=== PATIENT | female | born 1990 | race Caucasian/White ===

== ENCOUNTER 2018-07-05 14:25 | Emergency (ER) | payer BC ==
[2018-07-05 14:46] VITALS: RESP 16; TEMP 99
[2018-07-05 15:29] LABS: Basophils % (A) 1 %; Eosinophils # (A) 0.2 k/uL (0-0.7); Eosinophils % (A) 2 %; HCT 40.7 % (34.0-46.0); Lymphocytes # (A) 1.3 k/uL (1.0-4.8); Lymphocytes % (A) 19 %; MCH 27.7 pg (25.0-35.0); MCHC 32.1 g/dL (31.0-37.0); MCV 86.4 fL (80.0-100.0); Mean Platelet Volume 7.7; Monocytes # (A) 0.3 k/uL (0-1.0); Monocytes % (A) 4 %; Neutrophils # (A) 5.2 k/uL (1.3-7.7); Neutrophils % (A) 74 %; Platelet Count 308 k/uL (150-450); RBC 4.71 m/uL (3.80-5.40); RDW 12.2 % (11.5-15.5); WBC 7.1 k/uL (3.8-10.6)
[2018-07-05 15:37] LABS: ALT 11 U/L (9-52); AST 25 U/L (14-36); Albumin 4.1 g/dL (3.5-5.0); Alkaline Phosphatase 81 U/L (38-126); Amylase 55 U/L (30-110); Anion Gap 9 mmol/L; Blood Urea Nitrogen 12 mg/dL (7-17); Calcium 9.5 mg/dL (8.4-10.2); Carbon Dioxide 28 mmol/L (22-30); Chloride 104 mmol/L (98-107); Glucose 105 mg/dL (74-99); Lipase 74 U/L (23-300); Potassium 4.8 mmol/L (3.5-5.1); Sodium 141 mmol/L (137-145); Total Bilirubin 0.4 mg/dL (0.2-1.3); Total Protein 7.2 g/dL (6.3-8.2)
[2018-07-05 16:19] LABS: Amorphous Sediment,Urine Occasional /hpf; Appearance,Urine Cloudy (Clear); Bilirubin,Urine Negative (Negative); Blood,Urine Trace (Negative); Color,Urine Yellow; Glucose,Urine (UA) Negative (Negative); Hyaline Casts,Urine 3 /lpf (0-2); Ketones,Urine Negative (Negative); Leukocyte Esterase,Urine Trace (Negative); Mucus,Urine Few /hpf; Nitrite,Urine Negative (Negative); Protein,Urine Trace (Negative); RBC,Urine 5 /hpf (0-5); Specific Gravity,Urine 1.023 (1.001-1.035); Squamous Epithelial Cell,Urine 4 /hpf (0-4); Urobilinogen,Urine <2.0 mg/dL (<2.0); WBC,Urine 4 /hpf (0-5)
[2018-07-05] MEDS ORDERED: IBUPROFEN 600 MG TAB PO STA (16:40)
[2018-07-05] MEDS ORDERED: traMADol 50 MG TAB PO STA (16:40)
--- NOTE | 2018-07-05 16:44 | ED ---
Abdominal Pain HPI - General Chief Complaint: Abdominal Pain Stated Complaint: pelvic pain Time Seen by Provider: 07/05/18 15:56 Source: patient, RN notes reviewed, old records reviewed Mode of arrival: ambulatory Limitations: no limitations - History of Present Illness Initial Comments: This is a 27 year old female with CC of 2 days of RLQ abdominal pain. Patient reports she was seen by urgent care and sent in for further evaluation for ovarian cyst. Patient mother reports recent diagnosis of uterine cancer. Patient has had a history of ovarian cysts when she was much younger. She reports pain with having a bowel movement. No abnormal discharge, vaginal bleeding. LMP was last week. She denies fevers or chills. - Related Data Previous Rx's Medication Instructions Recorded Bisacodyl [Dulcolax] 10 mg PO ONCE #20 tablet. 07/05/18 traMADol HCl [Ultram] 50 mg PO Q6HR PRN 3 Days #12 tab 07/05/18 Allergies Allergy/AdvReac Type Severity Reaction Status Date / Time No Known Allergies Allergy Verified 07/05/18 16:14 Review of Systems ROS Statement: Those systems with pertinent positive or pertinent negative responses have been documented in the HPI. ROS Other: All systems not noted in ROS Statement are negative. Past Medical History Past Medical History: No Reported History History of Any Multi-Drug Resistant Organisms: None Reported Past Surgical History: No Surgical Hx Reported Past Psychological History: No Psychological Hx Reported Smoking Status: Never smoker Past Alcohol Use History: Occasional Past Drug Use History: None Reported General Exam - General Exam Comments Initial Comments: This is a 27 year old female, no distress. Limitations: no limitations General appearance: alert, in no apparent distress Head exam: Present: atraumatic, normocephalic, normal inspection Eye exam: Present: normal appearance, PERRL, EOMI. Absent: scleral icterus, conjunctival injection, periorbital swelling ENT exam: Present: normal exam, mucous membranes moist Neck exam: Present: normal inspection. Absent: tenderness, meningismus, lymphadenopathy Respiratory exam: Present: normal lung sounds bilaterally. Absent: respiratory distress, wheezes, rales, rhonchi, stridor Cardiovascular Exam: Present: regular rate, normal rhythm, normal heart sounds. Absent: systolic murmur, diastolic murmur, rubs, gallop, clicks GI/Abdominal exam: Present: soft, tenderness (minimal RLQ tendernesson exam), normal bowel sounds. Absent: distended, guarding, rebound, rigid Extremities exam: Present: normal inspection, full ROM, normal capillary refill. Absent: tenderness, pedal edema, joint swelling, calf tenderness Back exam: Present: normal inspection Neurological exam: Present: alert, oriented X3, CN II-XII intact Psychiatric exam: Present: normal affect, normal mood Skin exam: Present: warm, dry, intact, normal color. Absent: rash Course Vital Signs 07/05/18 07/05/18 14:43 19:34 Temperature 99 F Pulse Rate 119 H 104 H Respiratory 16 16 Rate Blood Pressure 125/85 117/72 O2 Sat by Pulse 99 97 Oximetry Medical Decision Making - Medical Decision Making Patient is a 27 year old female with RLQ and pelvic pain for 2 days. Patient lab work from [facility] was completed and negative for acute process. UA is negative for infection and HCG is negative. Last menstrual period was last week. Transvaginal US was completed and shows a large ovarian and uterine mass, recommended further visualization from CT or MRI. CT was completed and shows evidence of ascites and likely large R ovarian tumor. Patient pain was managed with tramadol. Patient mother recently diagnosed with uterine cancer and is seeing OBGYN oncologist tomorrow. Patient will go with mother to appt for her new diagnosis as well. Discussed need to contact PCP GURPREET tomorrow for referral. Discussed return parameters. Will DC patient with Rx for ultram and stool softner. All questions answered and return parameters discussed. - Lab Data Result diagrams: 07/05/18 15:10 07/05/18 15:10 Lab Results 07/05/18 07/05/18 07/05/18 Range/Units 15:10 15:10 16:04 WBC 7.1 (3.8-10.6) k/uL RBC 4.71 (3.80-5.40) m/uL Hgb 13.0 (11.4-16.0) gm/dL Hct 40.7 (34.0-46.0) % MCV 86.4 (80.0-100.0) fL MCH 27.7 (25.0-35.0) pg MCHC 32.1 (31.0-37.0) g/dL RDW 12.2 (11.5-15.5) % Plt Count 308 (150-450) k/uL Neutrophils % 74 % Lymphocytes % 19 % Monocytes % 4 % Eosinophils % 2 % Basophils % 1 % Neutrophils # 5.2 (1.3-7.7) k/uL Lymphocytes # 1.3 (1.0-4.8) k/uL Monocytes # 0.3 (0-1.0) k/uL Eosinophils # 0.2 (0-0.7) k/uL Basophils # 0.0 (0-0.2) k/uL Sodium 141 (137-145) mmol/L Potassium 4.8 (3.5-5.1) mmol/L Chloride 104 (98-107) mmol/L Carbon Dioxide 28 (22-30) mmol/L Anion Gap 9 mmol/L BUN 12 (7-17) mg/dL Creatinine 0.66 (0.52-1.04) mg/dL Est GFR (CKD-EPI)AfAm >90 (>60 ml/min/1.73 sqM) Est GFR (CKD-EPI)NonAf >90 (>60 ml/min/1.73 sqM) Glucose 105 H (74-99) mg/dL Calcium 9.5 (8.4-10.2) mg/dL Total Bilirubin 0.4 (0.2-1.3) mg/dL AST 25 (14-36) U/L ALT 11 (9-52) U/L Alkaline Phosphatase 81 (38-126) U/L Total Protein 7.2 (6.3-8.2) g/dL Albumin 4.1 (3.5-5.0) g/dL Amylase 55 (30-110) U/L Lipase 74 (23-300) U/L Urine Color Yellow Urine Appearance Cloudy H (Clear) Urine pH 5.0 (5.0-8.0) Ur Specific [place] 1.023 (1.001-1.035) Urine Protein Trace H (Negative) Urine Glucose (UA) Negative (Negative) Urine Ketones Negative (Negative) Urine Blood Trace H (Negative) Urine Nitrite Negative (Negative) Urine Bilirubin Negative (Negative) Urine Urobilinogen <2.0 (<2.0) mg/dL Ur Leukocyte Esterase Trace H (Negative) Urine RBC 5 (0-5) /hpf Urine WBC 4 (0-5) /hpf Ur Squamous Epith Cells 4 (0-4) /hpf Amorphous Sediment Occasional H (None) /hpf Hyaline Casts 3 H (0-2) /lpf Urine Mucus Few H (None) /hpf Urine HCG, Qual (Not Detectd) 07/05/18 Range/Units 16:04 WBC (3.8-10.6) k/uL RBC (3.80-5.40) m/uL Hgb (11.4-16.0) gm/dL Hct (34.0-46.0) % MCV (80.0-100.0) fL MCH (25.0-35.0) pg MCHC (31.0-37.0) g/dL RDW (11.5-15.5) % Plt Count (150-450) k/uL Neutrophils % % Lymphocytes % % Monocytes % % Eosinophils % % Basophils % % Neutrophils # (1.3-7.7) k/uL Lymphocytes # (1.0-4.8) k/uL Monocytes # (0-1.0) k/uL Eosinophils # (0-0.7) k/uL Basophils # (0-0.2) k/uL Sodium (137-145) mmol/L Potassium (3.5-5.1) mmol/L Chloride (98-107) mmol/L Carbon Dioxide (22-30) mmol/L Anion Gap mmol/L BUN (7-17) mg/dL Creatinine (0.52-1.04) mg/dL Est GFR (CKD-EPI)AfAm (>60 ml/min/1.73 sqM) Est GFR (CKD-EPI)NonAf (>60 ml/min/1.73 sqM) Glucose (74-99) mg/dL Calcium (8.4-10.2) mg/dL Total Bilirubin (0.2-1.3) mg/dL AST (14-36) U/L ALT (9-52) U/L Alkaline Phosphatase (38-126) U/L Total Protein (6.3-8.2) g/dL Albumin (3.5-5.0) g/dL Amylase (30-110) U/L Lipase (23-300) U/L Urine Color Urine Appearance (Clear) Urine pH (5.0-8.0) Ur Specific [place] (1.001-1.035) Urine Protein (Negative) Urine Glucose (UA) (Negative) Urine Ketones (Negative) Urine Blood (Negative) Urine Nitrite (Negative) Urine Bilirubin (Negative) Urine Urobilinogen (<2.0) mg/dL Ur Leukocyte Esterase (Negative) Urine RBC (0-5) /hpf Urine WBC (0-5) /hpf Ur Squamous Epith Cells (0-4) /hpf Amorphous Sediment (None) /hpf Hyaline Casts (0-2) /lpf Urine Mucus (None) /hpf Urine HCG, Qual Not Detected (Not Detectd) - Radiology Data Radiology results: report reviewed Large midline pelvic mass measures 14cm by 9cm, by 10cm which is solid. Some free fluid in pelvis. Pelvic mass could be uterus. Cystic structure on R ovary measures 3 by 2 cm. Normal arterial flow in R ovary. CT shows large solid and cystic pelvic max more likely related to ovarian tumor. Moderate ascites fluid throughout the abdomen. Disposition Clinical Impression: Abdominal pain, Pelvic mass, Ascites Disposition: HOME SELF-CARE Condition: Stable Instructions: Pelvic Pain in Women (ED) Additional Instructions: Patient has a follow-up tomorrow with primary care physician and go with the oncology appointment with her mother. Take the pain medicine every 8 hours as needed as well as take stool softeners. Return to the emergency department if any alarming signs or symptoms occur. Prescriptions: Bisacodyl [Dulcolax] 10 mg PO ONCE #20 tablet. traMADol HCl [Ultram] 50 mg PO Q6HR PRN 3 Days #12 tab PRN Reason: Pain Is patient prescribed a controlled substance at d/c from ED?: Yes If prescribed controlled substance>3 days was MAPS reviewed?: Prescribed <3 Days Referrals: Myrna Harrell DO [Primary Care Provider] - 1-2 days Time of Disposition: 19:16
--- NOTE | 2018-07-05 17:49 | US ---
EXAMINATION TYPE: US transvaginal DATE OF EXAM: 07/05/2018 COMPARISON: NONE CLINICAL HISTORY: Pain. Pelvic TECHNIQUE: Transvaginal (TV) and Transabdominal (TA) . Transvaginal sonographic images of the pelvi s were acquired. Transabdominal sonographic images were medically necessary to better assess the fol lowing anatomy: Date of LMP: 06/27/2018 EXAM MEASUREMENTS: Transvaginal exam attempted. Initial view of large, complex mass seen. Unable to image uterus due to mass distorting, compressing and pushing uterus anteriorly. Possible rt ovary (3.0 x 2.5 x 2.2 cm) seen at right margin of mass, color flow and waveforms obtaine d. No left ovary identified. Trans abdominal imaging done in an attempt to fully evaluate pelvic structures, Large (14.3 x 8.7 x 10.33 cm) mass fills pelvic cavity Second technologist brought into room to view. Question of better evaluation by CT? IMPRESSION: There is a large midline pelvic mass that measures 14 x 9 x 10 cm which is predominantly solid. There is also some free fluid in the pelvis. The pelvic mass could be the uterus. There is a o leslye-shaped structure that could be the right ovary that measures 3 x 2.2 cm. There is normal arterial waveform in the right ovarian artery. MR scan or CT scan would be helpful for further evaluation if clinically indicated. Uterine tumor is possible.
--- NOTE | 2018-07-05 17:53 | XR ---
EXAMINATION TYPE: XR KUB DATE OF EXAM: 07/05/2018 COMPARISON: NONE HISTORY: Right lower quadrant pain TECHNIQUE: 2 views FINDINGS: Bowel gas pattern is normal. There is no sign of intestinal obstruction or pneumoperitoneum . Fecal pattern is normal. Lung bases are clear. There are no pathologic calcifications over the kidn eys. IMPRESSION: Nonacute abdomen.
--- NOTE | 2018-07-05 18:46 | CT ---
EXAMINATION TYPE: CT abdomen pelvis w con DATE OF EXAM: 07/05/2018 COMPARISON: None HISTORY: Pelvic pain x2 days. CT DLP: 978 mGycm Automated exposure control for dose reduction was used. TECHNIQUE: Helical acquisition of images was performed from the lung bases through the pelvis. CONTRAST: Performed without Oral Contrast and with IV Contrast, patient injected with 100ml mL of Isovue M300. FINDINGS: Lung bases are clear. There is no pleural effusion. There is moderate ascites fluid throughout the ab domen. Liver spleen pancreas gallbladder appear normal. Bile ducts are not dilated. There is no adrenal mass . Kidneys show satisfactory contrast opacification. There is no hydronephrosis. Ureters are not dilat ed. There is a large mixed density mass in the pelvis that measures approximately 10 cm in diameter. This mass is displacing the uterus anteriorly. Uterus appears to have normal size and contour. Uterus is anteverted. There is free fluid in the pelvis. Bladder distends smoothly. Mass is slightly towards th e right side. There is no evidence of a bowel obstruction. There is no sign of pneumoperitoneum. I see no bony dest ructive process. Appendix appears normal. IMPRESSION: LARGE SOLID AND CYSTIC PELVIC MASS IS MORE LIKELY RELATED TO AN OVARIAN TUMOR. MODERATE ASCITES FLUID THROUGHOUT THE ABDOMEN.
[2018-07-05 19:36] VITALS: BP 117/72; PULSE 104
== END 2018-07-05 19:35 | disposition home or self-care (01) ==
LOC: MERGE 14:25 → EC 14:25
DX: R18.8 Other ascites (principal); R10.2 Pelvic and perineal pain; Z87.42 Personal history of other diseases of the female genital tract
CPT/HCPCS: 36415; 80053; 82150; 83690; 85025; 81001; 81025; 74018; 76856; 76830; 74177; 99285; Q9967; 93976

== ENCOUNTER → 2020-04-30 | Outpatient (CLI) | payer BC | END | disposition home or self-care (01) | LOC: LABWHC1 11:54 | PROVIDERS: ATTEND Obstetrics & Gynecology | DX: D39.10 Neoplasm of uncertain behavior of unspecified ovary (principal) | CPT/HCPCS: 36415; 86304 ==

== ENCOUNTER 2020-07-07 16:34 | Emergency (ER) | payer BC ==
[2020-07-07 16:54] VITALS: RESP 16
[2020-07-07] MEDS ORDERED: SODIUM CHLORIDE 0.9% 1,000 ML IV STA (17:02)
[2020-07-07] MEDS ORDERED: KETOROLAC 15 MG/ML 1 ML VIAL IVP STA (17:02)
[2020-07-07 17:29] LABS: Appearance,Urine Clear (Clear); Bilirubin,Urine Negative (Negative); Blood,Urine Small (Negative); Color,Urine Light Yellow; Glucose,Urine (UA) Negative (Negative); Ketones,Urine Negative (Negative); Leukocyte Esterase,Urine Moderate (Negative); Mucus,Urine Rare /hpf; Nitrite,Urine Negative (Negative); PH, Urine 5.5 (5.0-8.0); Protein,Urine Negative (Negative); RBC,Urine 1 /hpf (0-5); Specific Gravity,Urine 1.008 (1.001-1.035); Squamous Epithelial Cell,Urine 3 /hpf (0-4); Urobilinogen,Urine <2.0 mg/dL (<2.0); WBC,Urine 2 /hpf (0-5)
--- NOTE | 2020-07-07 17:32 | ED ---
Abdominal Pain HPI - General Chief Complaint: Abdominal Pain Stated Complaint: pelvic pain Time Seen by Provider: 07/07/20 16:59 Source: patient Mode of arrival: ambulatory Limitations: no limitations - History of Present Illness Initial Comments: Patient is a 29-year-old female with history of ovarian cancer presenting to emergency Department with chief complaint of pelvic pain. Patient states sudden onset of pain that started approximately 2 weeks ago in the right groin region as well as the right sacral region. Patient reports a CT was performed about 3 weeks ago and still awaiting results. Patient reports she went to her fertility physician who performed an ultrasound and found a suspected ovarian cyst. Patient reports since then she continues to have pain in the region with increasing severity. Patient reports the pain is sharp in nature that comes and goes in waves. States she had heavy menstrual bleeding last week areas states c urrently she's had intermittent spotting the last few days . Denies any dysuria but does report increased urgency or frequency since the weekend. Denies any vaginal discharge or foul smell. Denies hematuria, hematochezia or melena. Denies any night sweats fever or chills. Does report occasional nausea but no vomiting or diarrhea. She has full left-sided oophorectomy. There was a tumor removed from the right ovary but it was not removed. - Related Data Previous Rx's Medication Instructions Recorded bisacodyL [Dulcolax] 10 mg PO ONCE #20 tablet. 07/05/18 traMADol HCl [Ultram] 50 mg PO Q6HR PRN 3 Days #12 tab 07/05/18 Allergies Allergy/AdvReac Type Severity Reaction Status Date / Time adhesive tape Allergy Rash/Hives Verified 07/07/20 16:55 Review of Systems ROS Statement: Those systems with pertinent positive or pertinent negative responses have been documented in the HPI. ROS Other: All systems not noted in ROS Statement are negative. Past Medical History Past Medical History: No Reported History Additional Past Medical History / Comment(s): boarderline ovarian cx. left ovary removed. 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 ovarian cysts. History of Any Multi-Drug Resistant Organisms: None Reported Past Surgical History: No Surgical Hx Reported Additional Past Surgical History / Comment(s): left ovary removed. Past Psychological History: No Psychological Hx Reported Smoking Status: Never smoker Past Alcohol Use History: Occasional Past Drug Use History: None Reported General Exam Limitations: no limitations General appearance: alert, in no apparent distress Head exam: Present: atraumatic, normocephalic, normal inspection Eye exam: Present: normal appearance, PERRL, EOMI Pupils: Present: normal accommodation ENT exam: Present: normal exam, normal oropharynx, mucous membranes moist Neck exam: Present: normal inspection, full ROM. Absent: tenderness Respiratory exam: Present: normal lung sounds bilaterally. Absent: respiratory distress, wheezes, rales Cardiovascular Exam: Present: regular rate, normal rhythm, normal heart sounds GI/Abdominal exam: Present: soft, tenderness (Pain along the right right groin region. Negative McBurney point tenderness.). Absent: distended, guarding, rebound, rigid Extremities exam: Present: normal inspection, full ROM. Absent: tenderness Back exam: Present: normal inspection, full ROM, tenderness (Tenderness in the right sacral region.). Absent: CVA tenderness (R), CVA tenderness (L) Neurological exam: Present: alert, oriented X3 Psychiatric exam: Present: normal affect, normal mood Skin exam: Present: warm, dry, intact, normal color Course Vital Signs 07/07/20 07/07/20 16:49 20:26 Temperature 99.0 F 98.9 F Pulse Rate 94 78 Respiratory 16 16 Rate Blood Pressure 128/87 119/73 O2 Sat by Pulse 100 97 Oximetry Medical Decision Making - Medical Decision Making Patient is 21-year-old female with history of ovarian cancer presenting to the emergency department with a chief complaint of pelvic pain. Exam patient has some right-sided groin pain as well as pain in the right sacral region. I attempted to obtain the results of the CT imaging an ultrasound performed by her fertility physician and the oncologist from [facility] but this was unsuccessful. Transvaginal ultrasound performed to rule out ovarian torsion. The findings revealed a normal uterus. Mild free fluid in the pelvis. Right ovary shows no evidence of torsion. There is clearing of a complex Hollick mass compared to old exam. CBC and CMP are unremarkable. UA does reveal elevated leukocyte esterase and some blood. However, she did report some spotting. Pelvic examination was offered, she declined. I suspect the cause of her pain is related to a possible ruptured ovarian cyst which could explain the free fluid in the pelvis. Patient was given IV fluids, antiemetics and Toradol. On reevaluation patient reports proven his symptoms. 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 Strict return parameters were thoroughly discussed with patient was understanding and agreeable. Case discussed physician. - Lab Data Result diagrams: 07/07/20 17:46 07/07/20 17:46 Lab Results 07/07/20 07/07/20 07/07/20 Range/Units 17:15 17:15 17:46 WBC 5.4 (3.8-10.6) k/uL RBC 4.27 (3.80-5.40) m/uL Hgb 12.1 (11.4-16.0) gm/dL Hct 37.3 (34.0-46.0) % MCV 87.4 (80.0-100.0) fL MCH 28.5 (25.0-35.0) pg MCHC 32.6 (31.0-37.0) g/dL RDW 12.5 (11.5-15.5) % Plt Count 250 (150-450) k/uL Neutrophils % 58 % Lymphocytes % 30 % Monocytes % 5 % Eosinophils % 3 % Basophils % 1 % Neutrophils # 3.2 (1.3-7.7) k/uL Lymphocytes # 1.7 (1.0-4.8) k/uL Monocytes # 0.3 (0-1.0) k/uL Eosinophils # 0.2 (0-0.7) k/uL Basophils # 0.1 (0-0.2) k/uL Sodium (137-145) mmol/L Potassium (3.5-5.1) mmol/L Chloride (98-107) mmol/L Carbon Dioxide (22-30) mmol/L Anion Gap mmol/L BUN (7-17) mg/dL Creatinine (0.52-1.04) mg/dL Est GFR (CKD-EPI)AfAm (>60 ml/min/1.73 sqM) Est GFR (CKD-EPI)NonAf (>60 ml/min/1.73 sqM) Glucose (74-99) mg/dL Calcium (8.4-10.2) mg/dL Total Bilirubin (0.2-1.3) mg/dL AST (14-36) U/L ALT (4-34) U/L Alkaline Phosphatase (38-126) U/L Total Protein (6.3-8.2) g/dL Albumin (3.5-5.0) g/dL Lipase (23-300) U/L Urine Color Light Yellow Urine Appearance Clear (Clear) Urine pH 5.5 (5.0-8.0) Ur Specific [place] 1.008 (1.001-1.035) Urine Protein Negative (Negative) Urine Glucose (UA) Negative (Negative) Urine Ketones Negative (Negative) Urine Blood Small H (Negative) Urine Nitrite Negative (Negative) Urine Bilirubin Negative (Negative) Urine Urobilinogen <2.0 (<2.0) mg/dL Ur Leukocyte Esterase Moderate H (Negative) Urine RBC 1 (0-5) /hpf Urine WBC 2 (0-5) /hpf Ur Squamous Epith Cells 3 (0-4) /hpf Urine Mucus Rare H (None) /hpf Urine HCG, Qual Not Detected (Not Detectd) 07/07/20 Range/Units 17:46 WBC (3.8-10.6) k/uL RBC (3.80-5.40) m/uL Hgb (11.4-16.0) gm/dL Hct (34.0-46.0) % MCV (80.0-100.0) fL MCH (25.0-35.0) pg MCHC (31.0-37.0) g/dL RDW (11.5-15.5) % Plt Count (150-450) k/uL Neutrophils % % Lymphocytes % % Monocytes % % Eosinophils % % Basophils % % Neutrophils # (1.3-7.7) k/uL Lymphocytes # (1.0-4.8) k/uL Monocytes # (0-1.0) k/uL Eosinophils # (0-0.7) k/uL Basophils # (0-0.2) k/uL Sodium 139 (137-145) mmol/L Potassium 4.1 (3.5-5.1) mmol/L Chloride 106 (98-107) mmol/L Carbon Dioxide 26 (22-30) mmol/L Anion Gap 7 mmol/L BUN 10 (7-17) mg/dL Creatinine 0.57 (0.52-1.04) mg/dL Est GFR (CKD-EPI)AfAm >90 (>60 ml/min/1.73 sqM) Est GFR (CKD-EPI)NonAf >90 (>60 ml/min/1.73 sqM) Glucose 97 (74-99) mg/dL Calcium 8.8 (8.4-10.2) mg/dL Total Bilirubin 0.4 (0.2-1.3) mg/dL AST 21 (14-36) U/L ALT 8 (4-34) U/L Alkaline Phosphatase 61 (38-126) U/L Total Protein 7.2 (6.3-8.2) g/dL Albumin 4.6 (3.5-5.0) g/dL Lipase 121 (23-300) U/L Urine Color Urine Appearance (Clear) Urine pH (5.0-8.0) Ur Specific [place] (1.001-1.035) Urine Protein (Negative) Urine Glucose (UA) (Negative) Urine Ketones (Negative) Urine Blood (Negative) Urine Nitrite (Negative) Urine Bilirubin (Negative) Urine Urobilinogen (<2.0) mg/dL Ur Leukocyte Esterase (Negative) Urine RBC (0-5) /hpf Urine WBC (0-5) /hpf Ur Squamous Epith Cells (0-4) /hpf Urine Mucus (None) /hpf Urine HCG, Qual (Not Detectd) Disposition Clinical Impression: Abdominal pain Disposition: HOME SELF-CARE Condition: Stable Instructions (If sedation given, give patient instructions): Abdominal Pain (ED) Additional Instructions: Follow with her traffic maintenance supervisor. Return to emergency department if symptoms w deepen. Alternate between Tylenol and Motrin for pain. Is patient prescribed a controlled substance at d/c from ED?: No Referrals: Myrna Harrell DO [Primary Care Provider] - 1-2 days Time of Disposition: 20:18
[2020-07-07 17:59] LABS: Basophils # (A) 0.1 k/uL (0-0.2); Basophils % (A) 1 %; Eosinophils # (A) 0.2 k/uL (0-0.7); Eosinophils % (A) 3 %; HCT 37.3 % (34.0-46.0); HGB 12.1 gm/dL (11.4-16.0); Lymphocytes # (A) 1.7 k/uL (1.0-4.8); Lymphocytes % (A) 30 %; MCH 28.5 pg (25.0-35.0); MCHC 32.6 g/dL (31.0-37.0); MCV 87.4 fL (80.0-100.0); Mean Platelet Volume 8.7; Monocytes # (A) 0.3 k/uL (0-1.0); Monocytes % (A) 5 %; Neutrophils # (A) 3.2 k/uL (1.3-7.7); Neutrophils % (A) 58 %; Platelet Count 250 k/uL (150-450); RBC 4.27 m/uL (3.80-5.40); RDW 12.5 % (11.5-15.5); WBC 5.4 k/uL (3.8-10.6)
[2020-07-07 18:09] LABS: ALT 8 U/L (4-34); AST 21 U/L (14-36); African American GFR (CKD) >90 (>60 ml/min/1.73 sqM); Albumin 4.6 g/dL (3.5-5.0); Alkaline Phosphatase 61 U/L (38-126); Anion Gap 7 mmol/L; Blood Urea Nitrogen 10 mg/dL (7-17); Calcium 8.8 mg/dL (8.4-10.2); Carbon Dioxide 26 mmol/L (22-30); Chloride 106 mmol/L (98-107); Glucose 97 mg/dL (74-99); Non-African American GFR(CKD) >90 (>60 ml/min/1.73 sqM); Potassium 4.1 mmol/L (3.5-5.1); Sodium 139 mmol/L (137-145); Total Bilirubin 0.4 mg/dL (0.2-1.3); Total Protein 7.2 g/dL (6.3-8.2)
--- NOTE | 2020-07-07 20:12 | US ---
EXAMINATION TYPE: US transvaginal DATE OF EXAM: 07/07/2020 COMPARISON: US, CT 07/05/2018 CLINICAL HISTORY: r/o ovarian torsion. Pain x 2.5 weeks, spotting. Hx left ovary removed 2018-Borderl ine ovarian cancer per patient. Tumor removed from right ovary. G0. TECHNIQUE: Transvaginal (TV). Date of LMP: 06/29/2020 EXAM MEASUREMENTS: Uterus: 7.5 x 5.4 x 3.9 cm Endometrial Stripe: 0.48 cm Right Ovary: 2.2 x 1.6 x 1.5 cm Left Ovary: Not visualized, surgically removed. 1. Uterus: Anteverted Appears heterogeneous. Cervix area appears heterogeneous. Slightly hypoechoi c area in cervix not well seen in transverse view. 2. Endometrium: Measures 0.48 cm. 3. Right Ovary: Subcentimeter anechoic areas seen. Area seen adjacent to the right ovary is mentione d below. 4. Left Ovary: Removed Spectral, color and waveform doppler imaging shows arterial and venous flow within the right ovary. Hx left ovary removed. 5. Bilateral Adnexa: Complex fluid is seen posterior to the uterus. Fluid is seen within bilateral a dnexa. Complex area is seen posterior to the uterus/ in the right adnexa adjacent to the right ovary measurin.8 x 2.1 x 1.1 cm. 6. Posterior cul-de-sac: Fluid is seen. IMPRESSION: Normal uterus. Mild free fluid in the pelvis. Right ovary shows no evidence of torsion. There is lilian ring of the complex pelvic mass compared to old exam.
[2020-07-07 20:28] VITALS: BP 119/73; PULSE 78; TEMP 98.9
== END 2020-07-07 20:26 | disposition home or self-care (01) ==
LOC: EC 16:34
DX: R10.31 Right lower quadrant pain (principal); R10.2 Pelvic and perineal pain; D72.829 Elevated white blood cell count, unspecified; Z91.048 Other nonmedicinal substance allergy status; Z85.43 Personal history of malignant neoplasm of ovary; Z90.721 Acquired absence of ovaries, unilateral
CPT/HCPCS: 36415; 80053; 83690; 85025; 81001; 81025; 93976; 76830; 99284; 96374; 96361; J1885

== ENCOUNTER 2023-09-06 06:20 | Emergency (ER) | payer BC ==
[2023-09-06 06:36] VITALS: RESP 16
[2023-09-06] MEDS ORDERED: ONDANSETRON ODT 4 MG TAB PO STA (07:39)
--- NOTE | 2023-09-06 07:50 | ED ---
URI HPI - General Chief Complaint: Upper Respiratory Infection Stated Complaint: N/V Time Seen by Provider: 09/06/23 06:43 Source: patient, RN notes reviewed Mode of arrival: ambulatory Limitations: no limitations - History of Present Illness Initial Comments: This is a 33-year-old female who presents to the emergency department for congestion and nausea. Patient presents with her , who has been experiencing body aches and congestion over the last 24 hours. She has also started to feel generally unwell. While in the examination room with her , states that she started to feel nauseous and lightheaded. She then decided to check herself in. She does continue to feel nauseous but has not actually thrown up. The lightheadedness has started to improve. However, states that her left arm now feels cold. Denies pain in the arm itself or chest pain or shortness of breath. Denies any coughing or fevers. MD Complaint: nasal congestion - Related Data Previous Rx's Medication Instructions Recorded bisacodyL [Dulcolax] 10 mg PO ONCE #20 tablet. 07/05/18 traMADol HCl [Ultram] 50 mg PO Q6HR PRN 3 Days #12 tab 07/05/18 Allergies Allergy/AdvReac Type Severity Reaction Status Date / Time adhesive tape Allergy Rash/Hives Verified 07/07/20 16:55 Review of Systems ROS Statement: Those systems with pertinent positive or pertinent negative responses have been documented in the HPI. ROS Other: All systems not noted in ROS Statement are negative. Past Medical History Past Medical History: No Reported History Additional Past Medical History / Comment(s): boarderline ovarian cx. left ovary removed. 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 ovarian cysts. History of Any Multi-Drug Resistant Organisms: None Reported Past Surgical History: No Surgical Hx Reported Additional Past Surgical History / Comment(s): left ovary removed. Past Psychological History: No Psychological Hx Reported Smoking Status: Never smoker Past Alcohol Use History: Occasional Past Drug Use History: None Reported General Exam Limitations: no limitations General appearance: alert, in no apparent distress Head exam: Present: atraumatic, normocephalic, normal inspection Respiratory exam: Present: normal lung sounds bilaterally. Absent: respiratory distress, wheezes, rales, rhonchi, stridor Cardiovascular Exam: Present: regular rate, normal rhythm, normal heart sounds. Absent: systolic murmur, diastolic murmur, rubs, gallop, clicks Extremities exam: Present: other (No tenderness or temperature changes to the bilateral upper extremities. Full range of motion. 2+ radial pulses and capillary refill less than 1 second.) Neurological exam: Present: alert, oriented X3, CN II-XII intact Psychiatric exam: Present: normal affect, normal mood Skin exam: Present: warm, dry, intact, normal color. Absent: rash Course Vital Signs 09/06/23 09/06/23 06:22 09:07 Temperature 98 F 97.9 F Pulse Rate 70 85 Respiratory 16 16 Rate Blood Pressure 94/69 99/67 O2 Sat by Pulse 96 99 Oximetry Medical Decision Making - Medical Decision Making This is a 33-year-old female who presents to the emergency department for congestion and nausea. Was pt. sent in by a medical professional or institution? @ -No Did you speak to anyone other than the patient for history? @ -No Did you review nursing and triage notes? @ -Yes, and I agree, it is accurate with regards to the patient's symptoms. Were old charts reviewed? @ -No Differential Diagnosis? @ -Differential Nausea and Vomiting: Gastroenteritis, cholecystitis, appendicitis, pancreatitis, migraine, benign positional vertigo, food borne illness, pyelonephritis, irritable bowel syndrome, influenza, Covid, GERD, incarcerated hernia, intestinal obstruction, this is not meant to be an all-inclusive list. EKG interpreted by me (3pts min.)? @ -EKG interpreted by me demonstrating the following: Sinus rhythm. Ventricular rate 81 bpm, IN interval 151 ms, QRS duration 86 ms, QTC 435 ms. X-rays interpreted by me (1pt min.)? @ -Not obtained CT interpreted by me (1pt min.)? @ -Not obtained U/S interpreted by me (1pt. min.)? @ -Not obtained What testing was considered but not performed? (CT, X-rays, U/S, labs)? Why? @ -None What meds were considered but not given? Why? @ -None Did you discuss the management of the patient with other professionals? @ -No Did you reconcile home meds? @ -No Was smoking cessation discussed for >3mins.? @ -No Was critical care preformed (if so, how long)? @ -No Were there social determinants of health that impacted care today? How? (Homelessness, low income, unemployed, alcoholism, drug addiction, transportation, low edu. Level, literacy, decrease access to med. care, correction, rehab)? @ -No Was there de-escalation of care discussed even if they declined? (Discuss DNR or withdrawal of care, Hospice)? @ -No What co-morbidities impacted this encounter? (DM, HTN, Smoking, COPD, CAD, Cancer, CVA, Hep., AIDS, mental health diagnosis, sleep apnea, morbid obesity)? @ -None Was patient admitted / discharged? @ -Discharged. COVID, influenza, and RSV testing were negative. Patient had no irregularities on physical examination. She was given a dose of Zofran in the emergency department with improvement in symptoms. Advised that this is most likely related to a viral process. She was sent home with a starter pack for Zofran. Advised ibuprofen and Tylenol as needed for body aches and fmoh-iqa-qaetapn decongestants for additional symptomatic management. Patient otherwise discharged home in stable condition and will follow-up with her primary care provider. Undiagnosed new problem with uncertain prognosis? @ -None Drug Therapy requiring intensive monitoring for toxicity (Heparin, Nitro, Insulin, Cardizem)? @ -None Were any procedures done? @ -None Diagnosis/symptom? @ -Viral URI, nausea Acute, or Chronic, or Acute on Chronic? @ -Acute Uncomplicated (without systemic symptoms) or Complicated (systemic symptoms)? @ -Uncomplicated Side effects of treatment? @ -None Exacerbation, Progression, or Severe Exacerbation] @ -Not applicable Poses a threat to life or bodily function? @ -No Return precautions reviewed in depth, the patient is instructed to return to the emergency department with any new, worsening, or concerning symptoms. Patient verbalized understanding. This case was discussed in detail with the attending ED physician, Dr. Blood. Presentation, findings, and treatment plan discussed in detail as well. - Lab Data Lab Results 09/06/23 Range/Units 06:28 Influenza Type A (PCR) Not Detected (Not Detectd) Influenza Type B (PCR) Not Detected (Not Detectd) RSV (PCR) Not Detected (Not Detectd) SARS-CoV-2 (PCR) Not Detected (Not Detectd) Disposition Clinical Impression: Viral URI, Nausea Disposition: HOME SELF-CARE Instructions (If sedation given, give patient instructions): Upper Respiratory Infection (ED), Acute Nausea and Vomiting (ED) Additional Instructions: Return to the emergency department with any new, worsening, or concerning symptoms. You can take the Zofran up to every 8 hours as needed for nausea and vomiting. You can also use zjji-var-lekdahc decongestants or Flonase nasal spray to further help with your symptoms. Follow up with your primary care provider in 1-2 days. Is patient prescribed a controlled substance at d/c from ED?: No Referrals: Myrna Harrell DO [Primary Care Provider] - 1-2 days
[2023-09-06] MEDS ORDERED: ONDANSETRON 4 MG ODT STARTER PACK 2 TAB BTL PO STA (08:38)
[2023-09-06 09:16] VITALS: BP 99/67; PULSE 85; TEMP 97.9
== END 2023-09-06 09:08 | disposition home or self-care (01) ==
LOC: EC 06:20
DX: J06.9 Acute upper respiratory infection, unspecified (principal); R11.2 Nausea with vomiting, unspecified; Z20.822 Contact with and (suspected) exposure to COVID-19; Z91.09 Other allergy status, other than to drugs and biological substances
CPT/HCPCS: 93005; 87636; 99284; S0119

== ENCOUNTER 2025-04-22 20:25 | Emergency (ER) | payer BC ==
[2025-04-22 21:21] VITALS: TEMP 98.2
[2025-04-22] MEDS: SODIUM CHLORIDE 0.9% 1,000 ML IV ONE (21:59)
[2025-04-22 22:15] LABS: Basophils # (A) 0.07 10*3/uL (0.00-0.10); Basophils % (A) 1.1 %; Eosinophils # (A) 0.27 10*3/uL (0.04-0.35); Eosinophils % (A) 4.2 %; HGB 13.7 g/dL (12.0-15.0); Lymphocytes % (A) 34.6 %; MCH 29.7 pg (27.0-32.0); MCHC 34.3 g/dL (32.0-37.0); MCV 86.6 fL (80.0-97.0); Mean Platelet Volume 11.9 fL (9.5-12.2); Monocytes # (A) 0.47 10*3/uL (0.20-1.00); Monocytes % (A) 7.4 %; Neutrophils # (A) 3.35 10*3/uL (1.80-7.70); Neutrophils % (A) 52.7 %; Platelet Count 248 10*3/uL (140-440); RBC 4.62 10*6/uL (4.10-5.20); RDW 12.4 % (11.5-14.5); WBC 6.36 10*3/uL (4.50-10.00)
[2025-04-22 22:43] LABS: ALT 18 U/L (4-34); AST 24 U/L (14-36); African American GFR (CKD) >90 (>60 ml/min/1.73 sqM); Albumin 4.5 g/dL (3.5-5.0); Alkaline Phosphatase 93 U/L (38-126); Anion Gap 11 mmol/L; Blood Urea Nitrogen 13 mg/dL (7-17); Calcium 9.5 mg/dL (8.4-10.2); Carbon Dioxide 25 mmol/L (22-30); Chloride 107 mmol/L (98-107); Glucose 109 mg/dL (74-99); Lipase 129 U/L (23-300); Non-African American GFR(CKD) 88 (>60 ml/min/1.73 sqM); Potassium 4.1 mmol/L (3.5-5.1); Sodium 143 mmol/L (137-145); Total Bilirubin 0.3 mg/dL (0.2-1.3); Total Protein 6.8 g/dL (6.3-8.2)
[2025-04-22] MEDS: ONDANSETRON 4 MG/2 ML VIAL IVP STA (23:00)
[2025-04-22] MEDS: MORPHINE SULFATE 4 MG/ML SYRINGE IVP STA (23:02)
[2025-04-22 23:16] LABS: Prothrombin Time 10.6 sec (10.0-12.5)
--- NOTE | 2025-04-22 23:29 | ED ---
Pediatric GI HPI - General Chief Complaint: Abdominal Pain Stated Complaint: Abd Pain Time Seen by Provider: 04/22/25 21:30 Source: patient Mode of arrival: ambulatory Limitations: no limitations - History of Present Illness Initial Comments: Patient is a 34-year-old female past medical history of oophorectomy presenting today for right upper quadrant pain. States ongoing x 2 days and is sharp in nature. Began yesterday did not seem to have any inciting factors and was intermittent. Became more constant today after eating a salad with cheese and F rench dressing on it. States it feels like it radiates down towards her right low back. Did take ibuprofen for pain at approximately 6 PM without improvement in symptoms. Denies nausea and vomiting. Endorses alternating diarrhea and constipation over the last week, though did have a normal BM today. Denies melena, hematochezia, dysuria, urinary frequency, hematuria, vaginal bleeding or vaginal discharge. Prior surgical history includes prior oophorectomy and exploratory laparotomy by her practice clinician due to abdominal pain. Denies fevers or chills. - Related Data Previous Rx's Medication Instructions Recorded bisacodyL [Dulcolax] 10 mg PO ONCE #20 tablet. 07/05/18 traMADol HCl [Ultram] 50 mg PO Q6HR PRN 3 Days #12 tab 07/05/18 Allergies Allergy/AdvReac Type Severity Reaction Status Date / Time adhesive tape Allergy Rash/Hives Verified 04/22/25 21:21 Review of Systems ROS Statement: Those systems with pertinent positive or pertinent negative responses have been documented in the HPI. ROS Other: All systems not noted in ROS Statement are negative. Past Medical History Past Medical History: No Reported History Additional Past Medical History / Comment(s): boarderline ovarian cx. left ovary removed. 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 ovarian cysts. History of Any Multi-Drug Resistant Organisms: None Reported Past Surgical History: No Surgical Hx Reported Additional Past Surgical History / Comment(s): left ovary removed. Past Psychological History: No Psychological Hx Reported Smoking Status: Never smoker Past Alcohol Use History: Occasional Past Drug Use History: None Reported General Exam - General Exam Comments Initial Comments: PE: CONSTITUTIONAL: No apparent distress, well appearing SKIN: Warm, dry, no jaundice, hives or petechiae EYES: Pupils are equally round, extraocular movements intact without nystagmus, clear conjunctiva, non-icteric sclera HENT: Normocephalic, atraumatic, moist mucus membranes, oropharynx clear without exudates NECK: , Full range of motion, normal appearance PULMONARY: Clear to auscultation without wheezes, rhonchi, or rales, normal excursion, no accessory muscle use and no stridor CARDIOVASCULAR: Regular rate, rhythm, normal S1 and S2. No appreciated murmurs, rubs or gallops. Strong radial pulses with intact distal perfusion. No lower extremity edema GASTROINTESTINAL: Soft, active bowel sounds throughout, right upper quadrant nurse with patient with positive Sarmiento sign,, non-distended, no palpable masses, no rebound ; guarding with palpation of the right upper quadrant no hepatosplenomegaly, no CVA tenderness GENITOURINARY: MUSCULOSKELETAL: Extremities have no gross deformity, no edema, redness, or swelling. NEUROLOGIC:_a/o x 3, GCS 15, normal mentation and speech. Moves all extremities x 4 without motor or sensory deficit PSYCHIATRIC:_normal mood and affect, thought process is clear and linear Limitations: no limitations Course Vital Signs 04/22/25 04/22/25 04/23/25 21:18 23:59 01:35 Temperature 98.2 F Pulse Rate 91 82 77 Respiratory 18 16 18 Rate Blood Pressure 119/80 127/87 133/98 O2 Sat by Pulse 98 97 99 Oximetry Medical Decision Making - Medical Decision Making Was pt. sent in by a medical professional or institution (JAMEL Calderon, [employer], urgent care, hospital, or skilled nursing...) When possible be specific @ -[No] Did you speak to anyone other than the patient for history (EMS, parent, family, police, friend...)? What history was obtained from this source @ -[No] Did you review nursing and triage notes (agree or disagree)? Why? @ -[I reviewed and agree with nursing and triage notes] Were old charts reviewed (outside hosp., previous admission, EMS record, old EKG, old radiological studies, urgent care reports/EKG's, skilled nursing records)? Report findings @ -[Medical records reviewed] Differential Diagnosis (chest pain, altered mental status, abdominal pain women, abdominal pain men, vaginal bleeding, weakness, fever, dyspnea, syncope, headache, dizziness, GI bleed, back pain, seizure, CVA, palpatations, mental health, musculoskeletal)? Differential Abdominal Pain Women: Appendicitis, Cholecystitis, diverticulosis, ischemic bowel, pancreatitis, hepatitis, UTI, gastroenteritis, AAA, incarcerated hernia, bowel obstruction, constipation, inflammatory bowel, hepatitis, peptic ulcer disease, splenic infarction, perforated viscus, vulvitis, ovarian torsion, PID, kidney stone, placenta abruption, this is not meant to be an all-inclusive list EKG interpreted by me (3pts min.). @ -[As above] X-rays interpreted by me (1pt min.). @ -[None done] CT interpreted by me (1pt min.). @ -[None done] U/S interpreted by me (1pt. min.). @ -[None done] What testing was considered but not performed or refused? (CT, X-rays, U/S, labs)? Why? @ testing was considered however patient had prior oophorectomy What meds were considered but not given or refused? Why? @ -[None] Did you discuss the management of the patient with other professionals (professionals i.e. , PA, [employer], lab, RT, psych nurse, social sciences lecturer, equipment cleaner, teacher, chief sales officer, patient case coordinator)? Give summary @ -[No] Was smoking cessation discussed for >3mins.? @ -[No] Was critical care preformed (if so, how long)? @ -[No] Were there social determinants of health that impacted care today? How? (Home lessness, low income, unemployed, alcoholism, drug addiction, transportation, low edu. Level, literacy, decrease access to med. care, [facility], rehab)? @ -[No] Was there de-escalation of care discussed even if they declined (Discuss DNR or withdrawal of care, Hospice)? @ -[No] What co-morbidities impacted this encounter? (DM, HTN, Smoking, COPD, CAD, Cancer, CVA, ARF, Chemo, Hep., AIDS, mental health diagnosis, sleep apnea, morbid obesity)? @ -[None] Was patient admitted / discharged? Hospital course, mention meds given and route, prescriptions, significant lab abnormalities, going to OR and other pertinent info. @ -[hospital course] this is a pleasant 34-year-old female presenting today for 2 days sharp right upper quadrant pain. Vital signs are stable on arrival, patient afebrile. Exam significant for positive Sarmiento sign no CVA tenderness. Discussed with patient obtaining ultrasound of the right upper quadrant, labs, urinalysis administering pain control. Patient agreeable plan of care. Labs show no leukocytosis. Urinalysis showed Trace leukocyte esterase, 11 white cells, 1 squamous cells or bacteria negative nitrites. Pt denies any UTI symptoms. Will send for culture. KUB without signs of obstruction. On reassessment patient's pain is controlled and improved. Discussed with patient findings today, discussed cause possible constipation or gas pains. We discussed taking MiraLAX once to twice daily, and fyis-qxu-qwyfmio pain medications for pain control. Discussed with patient signs symptoms warranting return to the emergency department. Patient is comfortable discharge this point. In my medical judgment there is currently no evidence of an immediate life-threa tening or surgical condition. Discharge is therefore indicated at this time. [Discharge treatment instructions, follow up instructions, and appropriate emergency department return precautions were discussed with the patient and/or medical decision maker. Patient and/or medical decision maker expressed understanding of and agreed with the treatment plan, follow up instructions, and emergency department return precaution. All patient's and/or medical decision maker's questions were answered.] [The patient was advised that a small risk still exists that a serious condition could develop and was therefore instructed to return to the ED for any changes in symptoms, persistent symptoms, inability to obtain proper follow-up or for any further concerns. Patient received verbal and written instructions for this condition.] Undiagnosed new problem with uncertain prognosis? @ -[No] Drug Therapy requiring intensive monitoring for toxicity (Heparin, Nitro, Insulin, Cardizem)? @ -[No] Were any procedures done? @ -[No] Diagnosis/symptom? @Right upper quadrant pain, constipation Acute, or Chronic, or Acute on Chronic? @Acute Uncomplicated (without systemic symptoms) or Complicated (systemic symptoms)? @Uncomplicated Side effects of treatment? @ -[No] Exacerbation, Progression, or Severe Exacerbation? @ -[No] Poses a threat to life or bodily function? How? (Chest pain, USA, NM, pneumonia, PE, COPD, DKA, ARF, appy, cholecystitis, CVA, Diverticulitis, Homicidal, Suicidal, threat to staff... and all critical care pts) @ -[No] - Lab Data Result diagrams: 04/22/25 22:09 04/22/25 22:09 Lab Results 04/22/25 04/22/25 04/22/25 Range/Units 22:09 22:09 22:09 WBC 6.36 (4.50-10.00) 10*3/uL RBC 4.62 (4.10-5.20) 10*6/uL Hgb 13.7 (12.0-15.0) g/dL Hct 40.0 (37.2-46.3) % MCV 86.6 (80.0-97.0) fL MCH 29.7 (27.0-32.0) pg MCHC 34.3 (32.0-37.0) g/dL Plt Count 248 (140-440) 10*3/uL MPV 11.9 (9.5-12.2) fL Immature Gran % (Auto) 0 % Neutrophils % 52.7 % Lymphocytes % 34.6 % Monocytes % 7.4 % Eosinophils % 4.2 % Basophils % 1.1 % Immature Gran # 0.00 (0.00-0.04) 10*3/uL Neutrophils # 3.35 (1.80-7.70) 10*3/uL Lymphocytes # 2.20 (0.90-5.00) 10*3/uL Monocytes # 0.47 (0.20-1.00) 10*3/uL Eosinophils # 0.27 (0.04-0.35) 10*3/uL Basophils # 0.07 (0.00-0.10) 10*3/uL PT 10.6 (10.0-12.5) sec INR 1.0 (<1.2) APTT 25.0 (22.0-30.0) sec Sodium 143 (137-145) mmol/L Potassium 4.1 (3.5-5.1) mmol/L Chloride 107 (98-107) mmol/L Carbon Dioxide 25 (22-30) mmol/L Anion Gap 11 mmol/L BUN 13 (7-17) mg/dL Creatinine 0.87 (0.52-1.04) mg/dL Est GFR (CKD-EPI)AfAm >90 (>60 ml/min/1.73 sqM) Est GFR (CKD-EPI)NonAf 88 (>60 ml/min/1.73 sqM) Glucose 109 H (74-99) mg/dL Plasma Lactic Acid Sheldon (0.7-2.0) mmol/L Calcium 9.5 (8.4-10.2) mg/dL Total Bilirubin 0.3 (0.2-1.3) mg/dL AST 24 (14-36) U/L ALT 18 (4-34) U/L Alkaline Phosphatase 93 (38-126) U/L C-Reactive Protein (<1.0) mg/dL Total Protein 6.8 (6.3-8.2) g/dL Albumin 4.5 (3.5-5.0) g/dL Lipase 129 (23-300) U/L Urine Color Urine Appearance (Clear) Urine pH (5.0-8.0) Ur Specific [place] (1.001-1.035) Urine Protein (Negative) Urine Glucose (UA) (Negative) Urine Ketones (Negative) Urine Blood (Negative) Urine Nitrite (Negative) Urine Bilirubin (Negative) Urine Urobilinogen (<2.0) mg/dL Ur Leukocyte Esterase (Negative) Urine RBC (0-5) /hpf Urine WBC (0-5) /hpf Ur Squamous Epith Cells (0-4) /hpf Urine Bacteria (None) /hpf Urine Mucus (None) /hpf 04/22/25 04/22/25 04/22/25 Range/Units 22:09 22:25 23:00 WBC (4.50-10.00) 10*3/uL RBC (4.10-5.20) 10*6/uL Hgb (12.0-15.0) g/dL Hct (37.2-46.3) % MCV (80.0-97.0) fL MCH (27.0-32.0) pg MCHC (32.0-37.0) g/dL Plt Count (140-440) 10*3/uL MPV (9.5-12.2) fL Immature Gran % (Auto) % Neutrophils % % Lymphocytes % % Monocytes % % Eosinophils % % Basophils % % Immature Gran # (0.00-0.04) 10*3/uL Neutrophils # (1.80-7.70) 10*3/uL Lymphocytes # (0.90-5.00) 10*3/uL Monocytes # (0.20-1.00) 10*3/uL Eosinophils # (0.04-0.35) 10*3/uL Basophils # (0.00-0.10) 10*3/uL PT (10.0-12.5) sec INR (<1.2) APTT (22.0-30.0) sec Sodium (137-145) mmol/L Potassium (3.5-5.1) mmol/L Chloride (98-107) mmol/L Carbon Dioxide (22-30) mmol/L Anion Gap mmol/L BUN (7-17) mg/dL Creatinine (0.52-1.04) mg/dL Est GFR (CKD-EPI)AfAm (>60 ml/min/1.73 sqM) Est GFR (CKD-EPI)NonAf (>60 ml/min/1.73 sqM) Glucose (74-99) mg/dL Plasma Lactic Acid Sheldon 1.1 (0.7-2.0) mmol/L Calcium (8.4-10.2) mg/dL Total Bilirubin (0.2-1.3) mg/dL AST (14-36) U/L ALT (4-34) U/L Alkaline Phosphatase (38-126) U/L C-Reactive Protein 1.0 H (<1.0) mg/dL Total Protein (6.3-8.2) g/dL Albumin (3.5-5.0) g/dL Lipase (23-300) U/L Urine Color Colorless Urine Appearance Clear (Clear) Urine pH 6.5 (5.0-8.0) Ur Specific [place] 1.019 (1.001-1.035) Urine Protein Negative (Negative) Urine Glucose (UA) Negative (Negative) Urine Ketones Negative (Negative) Urine Blood Negative (Negative) Urine Nitrite Negative (Negative) Urine Bilirubin Negative (Negative) Urine Urobilinogen <2.0 (<2.0) mg/dL Ur Leukocyte Esterase Trace H (Negative) Urine RBC <1 (0-5) /hpf Urine WBC 11 H (0-5) /hpf Ur Squamous Epith Cells 1 (0-4) /hpf Urine Bacteria Rare H (None) /hpf Urine Mucus Rare H (None) /hpf Disposition Clinical Impression: Right upper quadrant pain, Constipation Disposition: HOME SELF-CARE Condition: Good Instructions (If sedation given, give patient instructions): Abdominal Pain (ED), Constipation (DC), High Fiber Diet (ED) Additional Instructions: Every disease is a spectrum and a small chance still exists that a serious condition could develop, for this reason, please monitor yourself closely for new, changing or worsening symptoms, symptoms that persist beyond/do not improve over the course of the next 48 hours, fever, inability to tolerate/keep down fluids or your medications, inability to follow up with outpatient providers as instructed and should you experience these symptoms or should you have any further concerns for your wellbeing please return to the ED or call [phone] i mmediately. Please take 1 capful of MiraLAX once to twice daily to achieve daily soft stools the consistency of wet sand. PLEASE call your primary care physician as soon as possible to arrange / discuss plan for followup appointment. Appointment in the next 1-3 days is strongly encouraged if possible. PLEASE let us know here before you leave if there is anything further we can do to be of any assistance. Take care and feel Better! Is patient prescribed a controlled substance at d/c from ED?: No Referrals: Myrna Harrell DO [Primary Care Provider] - 1-2 days
[2025-04-23 00:48] LABS: Appearance,Urine Clear (Clear); Bacteria,Urine Rare /hpf; Bilirubin,Urine Negative (Negative); Blood,Urine Negative (Negative); Color,Urine Colorless; Glucose,Urine (UA) Negative (Negative); Ketones,Urine Negative (Negative); Leukocyte Esterase,Urine Trace (Negative); Mucus,Urine Rare /hpf; Nitrite,Urine Negative (Negative); PH, Urine 6.5 (5.0-8.0); Protein,Urine Negative (Negative); RBC,Urine <1 /hpf (0-5); Specific Gravity,Urine 1.019 (1.001-1.035); Squamous Epithelial Cell,Urine 1 /hpf (0-4); Urobilinogen,Urine <2.0 mg/dL (<2.0); WBC,Urine 11 /hpf (0-5)
[2025-04-23] MEDS: DICYCLOMINE 20 MG TAB PO STA (01:29)
[2025-04-23] MEDS: MAG HYDROX/AL HYDROX/SIMETH 30 ML CUP PO STA (01:29)
[2025-04-23] MEDS: ONDANSETRON 4 MG/2 ML VIAL IVP STA (01:30)
[2025-04-23] MEDS: FAMOTIDINE 20 MG/2 ML VIAL IV STA (01:32)
[2025-04-23] MEDS: MORPHINE SULFATE 2 MG/ML SYRINGE IVP STA (01:40)
[2025-04-23 01:43] VITALS: BP 133/98; PULSE 77; RESP 18
--- NOTE | 2025-04-23 02:23 | US ---
EXAM: US Abdomen Limited, Gallbladder CLINICAL HISTORY: US Reason: RUQ pain TECHNIQUE: Real-time ultrasound of the right upper quadrant with image documentation. COMPARISON: CT scan from 07/05/2018 FINDINGS: Liver: The liver measures 13.3 cm. No focal liver mass lesion is seen. Gallbladder: The gallbladder is normally distended with no visible stones, wall thickening, or surrounding fluid. Common bile duct: The common bile duct is nondilated measuring 3 mm. Pancreas: Unremarkable as visualized. Right kidney: Unremarkable. No stones. No hydronephrosis. The right kidney measures 9.4 x 4.4 x 4.5 cm, 97 mL. IMPRESSION: The gallbladder is normally distended with no visible stones, wall thickening, or surrounding fluid. No acute process is seen within the abdomen.
--- NOTE | 2025-04-23 07:35 | XR ---
EXAMINATION TYPE: XR KUB DATE OF EXAM: 04/23/2025 12:02 AM COMPARISON: 07/05/2018 CLINICAL INDICATION: Female, 34 years old with history of RUQ pain, TECHNIQUE: XR KUB view(s) obtained. FINDINGS: There is a nonspecific bowel gas pattern. Some fecal debris is within the descending colon. No free air is evident. No differential air-fluid levels or. Psoas margins are normal. No organomegaly is present. IMPRESSION: 1. Nonspecific abdomen [facility], , 04/23/2025 7:33 AM
== END 2025-04-23 03:31 | disposition home or self-care (01) ==
LOC: EC 20:25
DX: K59.00 Constipation, unspecified (principal); Z91.048 Other nonmedicinal substance allergy status
CPT/HCPCS: 36415; 80053; 83605; 83690; 85025; 85610; 85730; 86140; 99285; 96374; 96375 ×2; 96361; 96376 ×2; J2270; J2405; 74018; 76705; 81001; 87086

== ENCOUNTER → 2025-06-04 | Outpatient (CLI) | payer BC ==
--- NOTE | 2025-06-04 10:34 | NM ---
EXAMINATION TYPE: NM hepatobiliary w EF DATE OF EXAM: 06/04/2025 COMPARISON: NONE CLINICAL INDICATION: Female, 34 years old with history of R10.11 RUQ pain; TECHNIQUE: After the intravenous administration of 5.3 mCi Tc 99m Mebrofenin hepatobiliary scintigrap hy is performed. Immediate images post injection. FINDINGS: There is satisfactory initial accumulation of tracer by the liver. The gallbladder is visualized wit hin 6 minutes. The small bowel activity is noted within 22 0OI minutes. At one hour 8 ounces of ora l ensure plus is given to mimic CCK and gallbladder ejection fraction is calculated at 96%, in the no rmal range. Therefore there is no scintigraphic evidence of cystic or common bile duct obstruction t o suggest acute cholecystitis or gallbladder dyskinesia. IMPRESSION: Elevated gallbladder ejection fraction suggestive hyperkinesia. Correlate clinically [facility], , 06/04/2025 10:32 AM
== END | disposition home or self-care (01) ==
LOC: RADNMMAIN 07:24
PROVIDERS: ATTEND Family Medicine
DX: R94.8 Abnormal results of function studies of other organs and systems (principal)
CPT/HCPCS: 78226; A9537